=== PATIENT | female | born 1935 | race African-American/Black ===

== ENCOUNTER 2016-09-26 05:15 | Day surgery (SDC) | payer MEDICARE, OTHER ==
--- NOTE | 2016-09-25 10:49 | Pre-Procedure Note/Attestation ---
Pre-Procedure Note/Attestation Complete Prior to Procedure Planned Procedure: right Procedure Narrative: phaco with IOL, OD Indications for Procedure Pre-Operative Diagnosis: cataract Attestation I attest that I discussed the nature of the procedure; its benefits; risks and complications; and alternatives (and the risks and benefits of such alternatives ), prior to the procedure, with the patient (or the patient's legal consumer sales representative). I attest that, if there was a reasonable possibility of needing a blood transfusion, the patient (or the patient's legal consumer sales representative) was given the [facility] standardized written summary, pursuant to the Edmar Bernardo Blood Safety Act ([place] Health and Safety Code # 1645, as amended). I attest that I re-evaluated the patient just prior to the surgery and that there has been no change in the patient's H&P, except as documented below: TRAVIS NG Sep 25, 2016 10:49
--- NOTE | 2016-09-25 10:51 | Opthalmology H&P ---
Ophthalmology H&P H&P Chief Complaint: decreased vision in right eye HPI Vision Affects Ability to: read, focus/use eyes together, manage personal affairs HPI Narrative blurry vision Exam Visual Acuity: OD: 20/200 OS: 20/40 Tension: OD: 16 OS: 19 Eye Exam: normal OU: anterior chambers, corneas, external exam, fundus exam, levator function, marginal reflex distance, palpebral fissure-width, findings: lens - OD: ns OS: IOL Assessment/Plan Diagnosis: (1) Cataract Treatment Plan: cataract extraction w/ lens implant Goals of Treatment: improvement of vision, enhance quality of life Attestation Attestation The risks and benefits of the surgery as well as alternative procedures were explained to the patient in detail. TRAVIS NG Sep 25, 2016 10:51
[~2016-09-26] VITALS: Ht 167.6 cm; Wt 52.6 kg
[2016-09-26] VITALS (8 sets, daily range): BP systolic 143–168; BP diastolic 53–63
[~2016-09-26 05:15] MED LIST: KLOR-CON 88 MEQ ORAL; LOSARTAN-HCTZ1 EAC1 ORAL; MONTELUKAST SOD10 MG ORAL; OYSTER SHELL C500 MG PO
[2016-09-26] MEDS: Tropicamide 1% Opth Soln RIGHT EYE SCH ×3 (05:41→06:05)
[2016-09-26] MEDS: Phenylephrine 10% Opth Soln 5ml RIGHT EYE SCH ×3 (05:42→06:05)
[2016-09-26] MEDS: Cyclopentolate 1% Opth Sol RIGHT EYE SCH ×3 (05:42→06:05)
[2016-09-26] MEDS: Diclofenac Sod 0.1% Op Soln RIGHT EYE SCH ×3 (05:42→06:05)
[2016-09-26] MEDS ORDERED: FERROUS SULFAT325 MG ORAL (05:56)
[2016-09-26] MEDS ORDERED: ASPIR-LOW81 MG ORAL (05:56)
[2016-09-26] MEDS ORDERED: Lidocaine 4% Amp ONE (06:58)
[2016-09-26] MEDS ORDERED: acetaZOLAMIDE 500mg Inj ONE (06:58)
[2016-09-26] MEDS ORDERED: EPINEPHrine 1mg/1ml Amp ONE ×2 (06:59→09:00)
[2016-09-26] MEDS ORDERED: Carbachol 0.01% Op Soln 1.5ml vial ONE (06:59)
[2016-09-26] MEDS ORDERED: Pilocarpine 2% Opth Soln ONE (06:59)
[2016-09-26] MEDS ORDERED: BSS 15ml BTL ONE (06:59)
[2016-09-26] MEDS ORDERED: Tobramycin Op Soln 0.3% RIGHT EYE ONE (07:00)
[2016-09-26] MEDS ORDERED: Povidone-Iodine 5% opth solution ONE (07:00)
[2016-09-26] MEDS ORDERED: Akten 3.5% 1ml Btl RIGHT EYE ONE (07:00)
[2016-09-26] MEDS ORDERED: Sodium Hyaluronate 14 mg/ml 0.85ml ONE (07:00)
[2016-09-26] MEDS ORDERED: Atropine Sulfate 0.4mg/ml inj ONE (07:30)
[2016-09-26] MEDS ORDERED: NS Irrig 1000ml ONE (07:30)
[2016-09-26] MEDS ORDERED: LR 1000ml ONE (07:30)
[2016-09-26] MEDS ORDERED: Sterile Water Irrig 1000ml IRRIG ONE (07:30)
--- NOTE | 2016-09-26 07:44 | Anethesia Preoperative Eval ---
Anesthesia Pre-op PMH/ROS General Date of Evaluation: Sep 26, 2016 Time of Evaluation: 07:20 Anesthesiologist: Katy ASA Score: ASA 3 Mallampati Score Class I : Soft palate, uvula, fauces, pillars visible Class II: Soft palate, uvula, fauces visible Class III: Soft palate, base of uvula visible Class IV: Only hard plate visible Mallampati Classification: Class II Surgeon: Vera Diagnosis: Cataract right eye Surgical Procedure: Extracction of cataract with IOL Family History: no anesthesia problems Allergies: Coded Allergies: Wheat (Verified Allergy, Severe, 09/08/16) COUGHING, ITCHY THROAT Dust (Verified Allergy, Mild, 09/08/16) SNEEZING Uncoded Allergies: grass (Adverse Reaction, Unknown, sneezing, 02/28/16) Medications: see eMAR Past Medical History Cardiovascular: Reports: HTN, Denies: CAD, [place], arrhythmia, other, valve dz Pulmonary: Reports: other - allergic rhinitis, Denies: COPD, ANGEL, asthma Gastrointestinal/Genitourinary: Denies: CRI, ESRD, GERD, other Neurologic/Psychiatric: Denies: CVA, TIA, dementia, depression/anxiety, other Endocrine: Denies: DM, hypothyroidism, other, steroids HEENT: Reports: cataract (L), cataract (R) Hematology/Immune: Denies: DVT, anemia, bleeding disorder, other Musculoskeletal/Integumentary: Denies: DDD, DJD, OA, RA, edema, other PMH Narrative: HTN, allergic rhinitis PSxH Narrative: Left eye cataract, sinus surgery Anesthesia Pre-op Phys. Exam Physician Exam Last Vital Signs Date Time Temp Pulse Resp B/P Pulse Ox O2 Delivery O2 Flow Rate FiO2 09/26/16 05:48 97.8 46 18 143/56 100 Room Air Constitutional: NAD Neurologic: CN 2-12 intact Cardiovascular: RRR, no M/R/G Respiratory: CTA Gastrointestinal: S/NT/ND Airway Exam Mallampati Score: Class II MO: full ROM: full Dentures: lower, upper Anesthesia Pre-op A/P Risk Assessment & Plan Assessment: For cataract extraction Plan: MAC, TIVA Status Change Before Surgery: No Pre-Antibiotics Drug: None СЕРГЕЙ FOFANA M.D. Sep 26, 2016 07:44
[2016-09-26] MEDS ORDERED: LR 1000ml 1,000 ML IV SCH (07:45)
[2016-09-26] MEDS ORDERED: fentaNYL 100 mcg/2 mL IV PRN (07:45)
--- NOTE | 2016-09-26 07:45 | Immediate Post-Op Evaluation ---
Immediate Post-Op Evalulation Immediate Post-Op Evalulation Procedure: Extraction of cataract with IOL right eye Date of Evaluation: Sep 26, 2016 Time of Evaluation: 08:30 IV Fluids: 300 Blood Pressure Systolic: 168 Blood Pressure Diastolic: 61 Pulse Rate: 64 Respiratory Rate: 20 O2 Sat by Pulse Oximetry: 100 Temperature (Fahrenheit): 97.9 Pain Score (1-10): 0 Nausea: No Vomiting: No Complications No complication Patient Status: awake, patent, none Hydration Status: adequate Drug: None СЕРГЕЙ FOFANA M.D. Sep 26, 2016 07:45
--- NOTE | 2016-09-26 08:28 | 48 Hour Post Anesthesia Eval ---
Post Anesthesia Evaluation Procedure: Extraction of cataract with IOL right eye Date of Evaluation: Sep 26, 2016 Time of Evaluation: 09:00 Blood Pressure Systolic: 154 0: 57 Pulse Rate: 56 Respiratory Rate: 22 O2 Sat by Pulse Oximetry: 99 Airway: patent Nausea: No Vomiting: No Pain Intensity: 0 Hydration Status: adequate Cardiopulmonary Status: Stable Mental Status/LOC: patient returned to baseline Follow-up Care/Observations: As per surgery Post-Anesthesia Complications: No anesthetic complication Follow-up care needed: N/A СЕРГЕЙ FOFANA M.D. Sep 26, 2016 08:28
[2016-09-26] MEDS ORDERED: Maxitrol Opth Oint 3.5gm ONE (09:00)
[2016-09-26] MEDS ORDERED: Pred Forte 1% Opth Susp 1ml ONE (09:00)
[2016-09-26] MEDS ORDERED: BSS 500ml btl ONE (09:00)
[2016-09-26] MEDS ORDERED: Dexamethasone 4mg/ml vial ONE (09:00)
[2016-09-26] MEDS ORDERED: LR 1000ml 1,000 ML IVLG SCH (15:00)
--- NOTE | 2016-09-27 08:59 | Brief Operative Note ---
Immediate Post Operative Note Operative Note Chief Complaint: blurry vision Pre-op Diagnosis: cataract, OD Procedure: phaco with IOL, OD Post-op Diagnosis: pseudophakia Post-op Diagnosis: same as pre-op Findings: consistent w/pre-op dx studies Surgeon: Vera Anesthesiologist: Katy Anesthesia: MAC Specimen: none Complications: none Condition: stable Estimated Blood Loss: none Drains: none Implant(s) used?: Yes TRAVIS NG Sep 27, 2016 08:59
--- NOTE | 2016-09-27 09:12 | Operative Note - PDOC ---
Operative Note Operative Note Date of Operation/Procedure: Sep 26, 2016 Chief Complaint: blurry vision Pre-op Diagnosis: cataract, OD Procedure: phaco with IOL, OD Post-op Diagnosis: pseudophakia Post-op Diagnosis: same as pre-op Operative Findings: consistent w/pre-op dx studies Surgeon: Vera Anesthesiologist: Katy Anesthesia: MAC Specimen: none Complications: none Condition: stable Estimated Blood Loss: none Drains: none Implant(s) used?: Yes Indications for Procedure cataract Description of Procedure This patient has been complaining visually significant cataract in the affected eye with the best corrected visual acuity under moderate glare conditions worse. The patient complains of difficulties with glare in performing activities of daily living and wants to manage personal affairs with comfort and accuracy and see well enough to move with safety at home and outdoors. ~~~ The risks, benefits and alternatives of the procedure were discussed with the patient in the office prior to scheduling surgery. All questions from the patient were answered after the surgical procedure was explained in detail. The risks of the procedure as explained to the patient include, but are not limited to, pain, infection, bleeding, loss of vision, retinal detachment, need for further surgery, loss of lens nucleus, double vision, etc. Alternative procedures were discussed which include, to do nothing or seek a second opinion. Informed consent for this procedure was obtained from the patient. The patient was referred to a primary care physician for a cardiopulmonary clearance prior to surgery, after proper evaluation was done patient was properly scheduled for outpatient surgery. The patient was brought to the operating room where the anesthesiologist established I.V. lines and cardiac monitoring leads. Mild intravenous sedation was administered.~~ The patient was then prepared with a 5% solution of povidone -iodine to the conjunctival fornix and lashes, and a 10% solution of povidone- iodine to the lids and periorbital skin. The patient was then draped in the usual sterile fashion. A lid speculum was then placed in the operative eye. A keratome blade was then used to create a biplanar incision into the anterior chamber. Viscoelastics was then instilled into the anterior chamber. A capsulorrhexis was then fashioned with an utrata forceps. BSS and a cannula were then used to hydrodissect and hydro delineate the lens. Paracentesis incision was made at 3 o'clock with sharp blade. The phacoemulsification unit, after being properly adjusted~ and tested, was then used to emulsify the nucleus. Residual cortical material was aspirated with the irrigation and aspiration unit. Healon was then instilled into the anterior chamber. The corneal wound was then enlarged to the size of the optic with the alice keratome blade. The intraocular lens was then inspected for right~ power and size~ and thought to be satisfactory. Then the lens was gently placed in the capsular bag. Positioning within the capsular bag was confirmed by direct visualization. Optic centration was accomplished with a Sinskey hook. Viscoelastics~ was removed from the anterior chamber using the irrigation and aspiration unit. The corneal wound was then tested for leaks and none were found. The lid speculum were then removed. Sponge and needle counts were correct. An eye patch and shield were placed over the operative eye. The patient was taken to the recovery room in stable condition. There were no complications. The patient tolerated the procedure well. The patient was then transferred to the ambulatory surgery unit in stable and satisfactory condition , was given detailed written instructions and asked to follow up~ in the office the next day. ~ ~ Dictated & Transcribed: [facility] Je ZARAGOZA JAMES Sep 27, 2016 09:12
== END 2016-09-26 09:40 | disposition home or self-care (01) ==
LOC: SUR 05:15
DX: H26.9 Unspecified cataract (principal); I10 Essential (primary) hypertension; R00.1 Bradycardia, unspecified; I25.10 Atherosclerotic heart disease of native coronary artery without angina pectoris; M19.90 Unspecified osteoarthritis, unspecified site; D64.9 Anemia, unspecified; J30.9 Allergic rhinitis, unspecified
CPT/HCPCS: 66984; J0171; J0360; J0461; J1100; J3370; J7120; V2632; 94003; 94150